=== PATIENT | male | born 1955 | race Two or more races ===

== ENCOUNTER 2017-09-25 12:59 | Day surgery (SDC) | payer OTHER ==
[~2017-09-25 12:59] MED LIST: BUPIVACAINE HCL/PF (5 MG/ML) 30 ML VIAL IJ ONE
[2017-09-25 13:41] VITALS: TEMP 97.9
--- NOTE | 2017-09-25 13:58 | HP ---
[facility] - Chief Complaint Chief Complaint: right knee pain - Past Medical History Allergies/Adverse Reactions: Allergies Allergy/AdvReac Type Severity Reaction Status Date / Time No Known Drug Allergies Allergy Verified 08/31/17 09:52 Cardiovascular: Yes: HTN, Hyperlipdemia Renal/: Yes: BPH, UTI - Current Medications Current Medications: Home Medications Medication Instructions Recorded Aspirin [ASA -] 81 mg PO DAILY 11/09/14 Atorvastatin Ca [Lipitor] 10 mg PO HS 11/09/14 Losartan Potassium [Cozaar -] 12.5 mg PO DAILY 03/11/15 [facility] Physical Exam - Physical Examination Vital Signs: Vital Signs Period Temp Pulse Resp BP Sys/Jauregui Pulse Ox Last 24 Hr 97.9 F 58 18 140/90 General Appearance: Well Nourished, Well Developed, Alert & Oriented x3 ENT: Clear Lung: Normal air movement Heart: Regular rate & rhythm Extremities: Other (right knee- + swelling, + ttp, decr rom, +mcmurrays, nvi MRI + mmt) Neurological: Intact, Alert, Oriented [facility] Impression/Plan - Impression/Plan Impression: right knee mmt Operative Procedure: right knee arthroscopy Date to be Performed: 09/25/17
[2017-09-25] MEDS ORDERED: MIDAZOLAM HCL 2 MG/2 ML SINGLE DOSE VIAL ONE (14:45)
[2017-09-25] MEDS ORDERED: ceFAZolin SODIUM 1 GM VIAL ONE (15:29)
[2017-09-25] MEDS ORDERED: ceFAZolin SODIUM 1 GM VIAL IVPB ONE (15:31)
--- NOTE | 2017-09-25 16:23 | OP ---
Operative Note - Note: Operative Date: 09/25/17 Pre-Operative Diagnosis: right knee medial meniscus tear, OA Operation: right knee arthroscopy, partial medial meniscectomy, debridement chondroplasty Post-Operative Diagnosis: Same as Pre-op Surgeon: Gerald Sepulveda Anesthesiologist/CLIENT ADVISOR: James Peters Anesthesia: General, Local Specimens Removed: shavings Estimated Blood Loss (mls): 0 Drains, Volume Out (mls): 0 Blood Volume Replaced (mls): 0 Fluid Volume Replaced (mls): 700 Operative Report Dictated: Yes
[2017-09-25] MEDS ORDERED: oxyCODONE HCL 5 MG TABLET PO PRN (16:35)
[2017-09-25] MEDS ORDERED: ONDANSETRON 4 MG/2 ML VIAL IVPUSH PRN (16:35)
[2017-09-25] MEDS ORDERED: ACETAMINOPHEN 1000 MG/100 ML VIAL (NON FORMULARY) IVPB ONE (16:36)
[2017-09-25] MEDS ORDERED: LACTATED RINGERS SOLUTION 1,000 ML IV SCH (16:45)
[2017-09-25] MEDS ORDERED: ACETAMINOPHEN INJECTION 100 ML IVPB ONE (17:02)
--- NOTE | 2017-09-25 17:21 | OP ---
DATE OF OPERATION: 09/25/2017 PREOPERATIVE DIAGNOSES: Right knee pain, medial meniscus tear, and osteoarthritis. POSTOPERATIVE DIAGNOSES: Right knee pain, medial meniscus tear, and osteoarthritis. PROCEDURE: Right knee arthroscopy, partial medial meniscectomy, and debridement/chondroplasty. SURGEON: Gerald Sepulveda MD ASSISTANTS: None. ANESTHESIOLOGY: Dr. Saldana and James Peters MD ANESTHESIA: LMA and local injection, 20 mL 0.5% Marcaine. DRAINS: None. COMPLICATIONS: None. SPECIMEN: Arthroscopic shavings. BLOOD LOSS: None. BLOOD GIVEN: None. FLUID REPLACEMENT: Plasma-Lyte 700 mL. DESCRIPTION OF PROCEDURE: The patient is a 62-year-old male with preoperative diagnoses of right knee pain and medial meniscus tear and osteoarthritis. After understanding the potential risks, complications, alternatives, and benefits of surgery versus nonsurgical treatment, the patient elected to undergo this procedure. Patient was brought to the operating room, peripheral IV placed, IV sedation given. One gram of IV Ancef was given. LMA anesthesia was induced. Ample Webril was placed around the right thigh. Tourniquet was applied. Styrofoam ring was applied. The patient's right lower extremity was placed into C-clamp leg javier with ample padding throughout. The right leg was prepped and draped in sterile fashion, elevated, exsanguinated with an Esmarch bandage and tourniquet inflated to 250 mmHg. A superior medial outflow portal was established. A lateral portal was established. An arthroscope was introduced into the joint. Under direct visualization using a spinal needle, a medial portal was established. Diagnostic arthroscopy was performed. Patient was seen to have a significant complex tear of most of the posterior aspect of the body and the entire posterior horn of the medial meniscus. Photographs were taken. This was debrided. Patient had a tremendous amount of synovitis in intercondylar notch. This was debrided. ACL and PCL were probed and looked good and had the appropriate tension. The patient had grade 1 chondromalacia of the medial tibial plateau, grade 2 changes of the medial femoral condyle. A gentle debridement/chondroplasty was performed. Next, our attention turned to the lateral compartment which actually looked quite good. There was no osteoarthritis. The lateral meniscus looked good. Next, our attention turned to the patellofemoral joint. The patient had a tremendous amount of patellofemoral chondromalacia. This was debrided. There was a lot of synovitis, and this was debrided. Once the synovitis was gone, I was able to visualize grade 3 and areas of grade 4 chondromalacial changes on the surface of the patella and grade 2 with small areas of grade 3 changes in the femoral trochlea. The area was debrided, copiously irrigated, and washed out. All instrumentation removed. Arthroscopy fluid removed. The arthroscopy portals closed with 2-0 nylon sutures. The area was then washed and dried, and 20 mL 0.5% Marcaine was introduced into the joint. It was then covered with Xeroform gauze, sterile 4 x 4 gauze, Webril, and an Adelso bandage. The tourniquet was taken down after total tourniquet time of 29 minutes. There were no complications during the case. The patient tolerated the procedure well and was brought to the ambulatory recovery room in stable condition. Андрей [id number]
[2017-09-25] MEDS ORDERED: oxyCODONE HCL 5 MG TABLET ONE (18:18)
[2017-09-25 20:05] VITALS: BP 150/96; PULSE 62
--- NOTE | 2017-09-29 12:12 | PATH ---
Surgical Pathology Report Patient Name: DANY LLOYD [facility]. Rec. #: [id number] /Age/Gender: 1955 (Age: 62) / M Account: [id number] Location: [facility] Taken: 09/25/2017 Received: 09/26/2017 Reported: 09/29/2017 Physicians: Gerald Sepulveda M.D. Specimen(s) Received RIGHT KNEE SHAVINGS Clinical History Right medial meniscus tear Final Diagnosis KNEE SHAVINGS, RIGHT, ARTHROSCOPY, PARTIAL MEDIAN MENISCECTOMY AND DEBRIDEMENT CHONDROPLASTY: FRAGMENTS OF CARTILAGE, DENSE FIBROCONNECTIVE TISSUE, ADIPOSE TISSUE, AND SYNOVIUM. Electronically Signed Shayy Mendenhall M.D. Gross Description Received in formalin, labeled "right knee shavings," is a 6.0 x 5.5 x 0.5 cm. aggregate of person-yellow soft tissue fragments. A commercial representative portion is submitted in one cassette. /09/26/201709/26/2017
== END 2017-09-25 19:00 | disposition home or self-care (01) ==
LOC: JASU-SURG 12:59 → JOR 12:59 → JASU-SURG 19:00
PROVIDERS: ATTEND Orthopaedic Surgery
PROC: 0SBC4ZZ Excision of Right Knee Joint, Percutaneous Endoscopic Approach (ICD-10-PCS; principal; 2017-09-25 14:00)
DX: M23.221 Derangement of posterior horn of medial meniscus due to old tear or injury, right knee (principal); M17.11 Unilateral primary osteoarthritis, right knee; M65.861 Other synovitis and tenosynovitis, right lower leg
CPT/HCPCS: 88304-TC; 94760; J0131

== ENCOUNTER 2018-11-10 05:54 | Day surgery (SDC) | payer OTHER | END 2018-11-11 16:00 | disposition home health service (06) | LOC: FASU 05:54 → FASUSAT 11-11 16:00 → FM/S 10:45 ==

== ENCOUNTER 2020-11-08 04:34 | Day surgery (SDC) | payer OTHER ==
[2020-11-03 11:35] VITALS: BMI 25.8
[2020-11-08] MEDS ORDERED: MIDAZOLAM HCL 2 MG/2 ML SINGLE DOSE VIAL ONE (07:37)
[2020-11-08] MEDS ORDERED: ACETAMINOPHEN 325 MG TABLET (FP) PO PRN (08:34)
[2020-11-08] MEDS: OFLOXACIN 0.3% OPHTHALMIC SOLUTION 5 ML BOTTLE OP SCH ×3 (10:00→10:10)
[2020-11-08] MEDS ORDERED: OFLOXACIN 0.3% OPHTHALMIC SOLUTION 5 ML BOTTLE ONE (10:00)
[2020-11-08] MEDS ORDERED: LIDOCAINE HCL 2% JELLY (5 ML/TUBE) ONE (12:14)
[2020-11-08] MEDS ORDERED: LIDOCAINE 1%/EPI 1:100000 (20 ML MULTI DOSE VIAL) ONE (12:21)
[2020-11-08] MEDS ORDERED: TRIAMCINOLONE ACET 40MG/1ML VIAL ONE (12:25)
[2020-11-08] MEDS ORDERED: POVIDONE-IODINE 5% OPHTHALMIC PREP 30 ML SOLUTION ONE (12:32)
[2020-11-08] MEDS ORDERED: LIDOCAINE 1%/EPI 1:100000 (20 ML MULTI DOSE VIAL) IJ ONE ×2 (12:32→12:48)
[2020-11-08] MEDS ORDERED: TRIAMCINOLONE ACET 40MG/1ML VIAL IM ONE ×2 (12:33→12:56)
[2020-11-08] MEDS ORDERED: ACETAMINOPHEN 325 MG TABLET (FP) ONE (13:38)
[2020-11-08] MEDS ORDERED: ACETAMINOPHEN 325 MG TABLET (FP) PO ONE (14:15)
[2020-11-08 14:38] VITALS: BP 140/90; PULSE 70; TEMP 98.2
== END 2020-11-08 14:39 | disposition home or self-care (01) ==
LOC: JASU-SURG 04:34
PROVIDERS: ATTEND Ophthalmology
PROC: 08U907Z Supplement Left Cornea with Autologous Tissue Substitute, Open Approach (ICD-10-PCS; 2020-11-08)
PROC: 08B9XZZ Excision of Left Cornea, External Approach (ICD-10-PCS; principal; 2020-11-08 12:00)
DX: H11.002 Unspecified pterygium of left eye (principal)
CPT/HCPCS: 88305-TC

== ENCOUNTER 2023-09-08 04:41 | Day surgery (SDC) | payer OTHER ==
[2023-09-01 11:05] VITALS: BMI 25.3
[2023-09-08 08:51] VITALS: RESP 18
[2023-09-08] MEDS ORDERED: MIDAZOLAM HCL 2 MG/2 ML SINGLE DOSE VIAL ONE (09:26)
[2023-09-08 13:57] VITALS: TEMP 97.8
[2023-09-08 14:04] VITALS: BP 159/89; PULSE 61
== END 2023-09-08 11:12 | disposition home or self-care (01) ==
LOC: JASU-SURG 04:41
PROVIDERS: ATTEND Urology
PROC: 0TF4XZZ Fragmentation in Left Kidney Pelvis, External Approach (ICD-10-PCS; principal; 2023-09-08 11:00)
DX: N20.0 Calculus of kidney (principal)